=== PATIENT | female | born 1980 | race Caucasian/White ===

== ENCOUNTER → 2018-01-24 | Outpatient (CLI) | payer MEDICAID | LOC: MHCPAIN 11:00 | DX: G89.29 Other chronic pain (principal); M47.817 Spondylosis without myelopathy or radiculopathy, lumbosacral region; M54.16 Radiculopathy, lumbar region; M53.3 Sacrococcygeal disorders, not elsewhere classified | CPT/HCPCS: G0463 ==

== ENCOUNTER → 2018-02-08 | Outpatient (CLI) | payer MEDICAID | LOC: MHCPAIN 14:17 | DX: M47.817 Spondylosis without myelopathy or radiculopathy, lumbosacral region (principal); M48.07 Spinal stenosis, lumbosacral region | CPT/HCPCS: J1040; Q9967 ==

== ENCOUNTER → 2018-02-20 | Outpatient (CLI) | payer MEDICAID | LOC: MHCPAIN 15:49 | DX: G89.29 Other chronic pain (principal); M47.817 Spondylosis without myelopathy or radiculopathy, lumbosacral region; M54.16 Radiculopathy, lumbar region; M53.3 Sacrococcygeal disorders, not elsewhere classified | CPT/HCPCS: G0463 ==

== ENCOUNTER → 2018-03-08 | Outpatient (CLI) | payer MEDICAID | LOC: MHCPAIN 14:00 | DX: M54.16 Radiculopathy, lumbar region (principal) | CPT/HCPCS: J1040; Q9967 ==